=== PATIENT | male | born 1945 | race Caucasian/White ===

== ENCOUNTER → 2018-11-05 | Outpatient (CLI) | payer MEDICARE, BC ==
--- NOTE | 2018-11-05 11:19 | SFUN ---
SLEEP CENTER FOLLOW UP NOTE DATE OF SERVICE: 11/05/2018. This 73-year-old gentleman had been followed in sleep center for treatment of obstructive sleep apnea-hypopnea syndrome. Patient continued to use CPAP equipment every night for the whole night, sleeps well with that. No significant excessive daytime sleepiness. [place] Sleepiness Scale is 7. I checked his CPAP unit. CPAP pressure is 11 cm of water. Usage is 100% of the time more than 4 hours. Average usage is 7.6 hours. Quite significant leak 49 L/minute, but apnea-hypopnea index totally normal 1.81. MEDICATIONS: Lisinopril, Januvia, omeprazole, metformin, potassium supplement, allopurinol, atorvastatin. PHYSICAL EXAMINATION: During physical exam, a gentleman without distress. VITAL SIGNS: BP 124/70, HR 73, RR 16, height 5 feet 11 inches, weight 319.6 pounds, temperature 98.3, oxygen saturation at room air 93%. HEENT: PERRLA, EOMI. Oropharynx low position of soft palate, Mallampati 3-4. NECK: Supple, no JVD. Thyroid is not palpable. LUNGS: Clear to percussion and to auscultation. Good air exchange. No wheezing or rhonchi. HEART: S1, S2 regular. No murmurs, gallops, or rubs. ABDOMEN: Soft and nontender. Bowel sounds are present. No organomegaly appreciated. EXTREMITIES: 1+ bilateral ankle edema. WRAP TURNER: Awake, alert, and oriented X3. Cranial nerves 2 to 7 intact. There is no fasciculation or atrophy. noted. No focal deficits observed. IMPRESSION: 1. Severe obstructive sleep apnea-hypopnea syndrome; apnea-hypopnea index by results of previous sleep study 57.4 with oxygen desaturation to 73.2% on full control with CPAP at 11 cm of water. The patient demonstrated 100% compliance with treatment benefitting from treatment. 2. Still there is a leak while using CPAP equipment, possibly related to opening mouth. Patient has chinstrap but not always using it. 3. Obesity. 4. Hypertension. 5. Diabetes mellitus. 6. Hyperlipidemia. 7. History of kidney stones. 8. Status post melanoma treatment. PLAN: 1. Patient will continue to use CPAP equipment every night for the whole night with chinstrap every night. 2. We will continue to maintain all necessary prescription for mask, tube, filters or any other necessary CPAP supplies. 3. Losing weight. 4. Sleep hygiene with regular time in bed for at least 8 hours. 5. No driving if feeling sleepiness. 6. Follow-up visit in 1 year or earlier if patient has any problems. Thank you very much for allowing me to participate in management of your patient. Sincerely, Norberto Rai MD, PhD, FAASM Diplomat of [place] [employer] [place] [employer] Chief Engineering Division of [facility] [place] MMODL / IJN: [id number] /
== END ==
LOC: SLEEP 10:07
PROVIDERS: ATTEND Internal Medicine
DX: G47.33 Obstructive sleep apnea (adult) (pediatric) (principal); E66.9 Obesity, unspecified; I10 Essential (primary) hypertension; E11.9 Type 2 diabetes mellitus without complications; E78.5 Hyperlipidemia, unspecified; Z99.89 Dependence on other enabling machines and devices; Z79.84 Long term (current) use of oral hypoglycemic drugs; Z79.899 Other long term (current) drug therapy; Z98.890 Other specified postprocedural states; Z87.442 Personal history of urinary calculi; Z85.828 Personal history of other malignant neoplasm of skin

== ENCOUNTER → 2019-10-21 | Outpatient (CLI) | payer MEDICARE ==
--- NOTE | 2019-10-21 11:53 | SFUN ---
SLEEP CENTER FOLLOW UP NOTE DATE OF SERVICE: 10/21/2019 This 74-year-old gentleman has been followed in Sleep Center for treatment of obstructive sleep apnea-hypopnea syndrome. The patient continued to use his CPAP treatment, sometimes maybe not for the whole night because he has to wake up at night several times to take care about his . [place] Sleepiness Scale today is 10, which is borderline. I checked patient's CPAP unit. CPAP pressure is 11 cm of water. The patient used it for 327 nights out of 365 nights for the last year and 233 nights more than 4 hours with average usage 5.6 hours per night. Leak is quite high 47 L/minute. In the same time, apnea-hypopnea index borderline 5.3, which is acceptable. The patient is using AirFit P10 large nasal pillow mask. MEDICATIONS: , finasteride, Januvia, metformin, Crestor, allopurinol, meloxicam, spironolactone, tolterodine, baby aspirin. PHYSICAL EXAMINATION: During physical exam, patient in no distress. VITAL SIGNS: BP 106/57, HR 74, RR 16, height 5 feet 11 inches, weight 312.0 pounds, body mass index 43.5. The patient lost about 7 pounds since last visit. Temperature 97.7, oxygen saturation at room air 95%. HEENT: PERRLA, EOMI. Oropharynx low position of soft palate, Mallampati 3-4. NECK: Supple, no JVD. Thyroid is not palpable. LUNGS: Clear to percussion and to auscultation. Good air exchange. No wheezing or rhonchi. HEART: S1, S2 regular. No murmurs, gallops, or rubs. ABDOMEN: Obese. EXTREMITIES: 1+ bilateral ankle edema. SOLIDWORKS DESIGNER: Awake, alert, and oriented X3. Cranial nerves 2 to 7 intact. There is no fasciculation or atrophy. noted. No focal deficits observed. IMPRESSION: 1. Severe obstructive sleep apnea-hypopnea syndrome; apnea-hypopnea index 57.4. The patient continued to use his CPAP equipment, benefitting from treatment. 2. Obesity. Patient lost about 7 pounds since last visit. 3. Hypertension. 4. Diabetes mellitus. 5. Hyperlipidemia. 6. History of kidney stones. 7. Status post melanoma treatment. PLAN: 1. Patient will continue to use CPAP equipment every night for the whole night. 2. To continued losing weight. 3. Sleep hygiene with regular time in bed for at least 7-1/2 to 8 hours. 4. Prescription for all necessary CPAP supplies including nasal pillow mask AirFit P10 large size and chinstrap. 5. No driving if feeling any sleepiness. Thank you very much for allowing me to participate in management of your patient. Sincerely, Norberto Rai MD, PhD, FAASM Diplomat of [place] [employer] [place] [employer] Residential Interior Designer of [facility] [place] MMODL / IJN: [id number] /
== END | disposition home or self-care (01) ==
LOC: SLEEP 11:01
PROVIDERS: ATTEND Internal Medicine
DX: G47.33 Obstructive sleep apnea (adult) (pediatric) (principal); E66.9 Obesity, unspecified; I10 Essential (primary) hypertension; E11.9 Type 2 diabetes mellitus without complications; E78.5 Hyperlipidemia, unspecified; Z87.442 Personal history of urinary calculi; Z98.890 Other specified postprocedural states; Z99.89 Dependence on other enabling machines and devices; Z68.41 Body mass index [BMI] 40.0-44.9, adult; Z79.84 Long term (current) use of oral hypoglycemic drugs; Z79.1 Long term (current) use of non-steroidal anti-inflammatories (NSAID); Z79.82 Long term (current) use of aspirin

== ENCOUNTER → 2021-04-12 | Outpatient (CLI) | payer MEDICARE ==
--- NOTE | 2021-04-12 22:45 | SFUN ---
SLEEP CENTER FOLLOW UP NOTE DATE OF SERVICE: 04/12/2021 This 75-year-old gentleman has been followed in Sleep Center for treatment of obstructive sleep apnea-hypopnea syndrome. The patient continues to use CPAP equipment every night. He does not have on CPAP, getting his supplies on time. [place] Sleepiness Scale is 4 today, which is normal. During the last visit when apnea-hypopnea index was 6.5, I increased the pressure from 11 cm of water to 12 cm of water because his CPAP unit does not have an option for automatic regulation of pressure. I checked his CPAP unit today. Pressure is 12 cm of water. Usage is 30/30 nights and 16/30 nights for more than 4 hours. Average 4.6 hours per night. Very high leak of 54 L/minute. Apnea-hypopnea index 8.0. MEDICATIONS: 1. Spironolactone 25 mg once a day. 2. Omeprazole 20 mg once a day. 3. Rosuvastatin 20 mg once a day. 4. Meloxicam 15 mg once a day. 5. Metformin 500 mg 2 tablets twice a day. 6. Allopurinol 300 mg once a day. 7. Januvia 100 mg once a day. 8. Finasteride 5 mg once a day. 9. Ezetimibe 10 mg once a day. 10.Voltaren as needed. PHYSICAL EXAMINATION: GENERAL: A pleasant gentleman without distress. VITAL SIGNS: BP 134/72, HR 76, RR 15, height 5 feet 10-1/2 inches, weight 295 pounds, which is one pound less than during the last visit. Body mass index 41.7, temperature 98.2, oxygen saturation at room air 93%. HEENT: PERRLA, EOMI, evaluation of oropharynx showed tongue protrudes midline. Low position of soft palate; Mallampati III to IV. NECK: Supple, no JVD. Thyroid is not palpable. LUNGS: Clear to percussion and to auscultation. Good air exchange. No wheezing or rhonchi. HEART: S1, S2 regular. No murmurs, gallops, or rubs. ABDOMEN: Obese. EXTREMITIES: No clubbing or cyanosis. COLD MOLDING PRESS OPERATOR: Awake, alert, and oriented X3. Cranial nerves 2 to 7 intact. There is no fasciculation or atrophy. noted. No focal deficits observed. IMPRESSION: 1. Severe obstructive sleep apnea-hypopnea syndrome. Original AHI was 57.4. The patient is using equipment every night, sometimes for a short time. Quite significant leak from the mask. Apnea-hypopnea index is slightly increased. 2. Obesity in morbid range. Body mass index 41.7. 3. Hypertension. 4. Diabetes mellitus. 5. Hyperlipidemia. 6. History of kidney stones. 7. Status post treatment for melanoma. PLAN: 1. I increased pressure in the CPAP unit to 13. 2. Prescription for chin strap. 3. Patient will continue to use PAP equipment every night for the whole night. 4. Sleep hygiene with regular time in bed for at least 7-1/2 to 8 hours. 5. Precautions related to driving. No driving if feeling sleepiness. 6. I will maintain all necessary prescription for PAP supplies including mask, tube, filters. 7. Watching weight. 8. Follow-up visit in 6 months or earlier if patient has any problems. Thank you very much for allowing me to participate in the management of your patient. Sincerely, Norberto Rai MD, PhD, FAASM Diplomat of [place] [employer] Sleep Medicine Board of [place] [employer] Fats And Oils Loader of [facility] [place] MMODL / IJN: [id number] /
== END | disposition home or self-care (01) ==
LOC: SLEEP 15:23
PROVIDERS: ATTEND Internal Medicine
DX: G47.33 Obstructive sleep apnea (adult) (pediatric) (principal); E66.01 Morbid (severe) obesity due to excess calories; Z68.41 Body mass index [BMI] 40.0-44.9, adult; I10 Essential (primary) hypertension; E11.9 Type 2 diabetes mellitus without complications; E78.5 Hyperlipidemia, unspecified; Z87.442 Personal history of urinary calculi

== ENCOUNTER → 2021-10-11 | Outpatient (CLI) | payer MEDICARE ==
--- NOTE | 2021-10-11 15:24 | SFUN ---
SLEEP CENTER FOLLOW UP NOTE DATE OF SERVICE: 10/11/2021 This 75-year-old gentleman has been followed in Sleep Center for treatment of obstructive sleep apnea-hypopnea syndrome. The patient is using his CPAP equipment, but not every night. Without the machine, he has snoring. [place] Sleepiness Scale today is 8, which is in acceptable range. I checked his CPAP unit. Pressure is 13 cm of water. Usage is 14/30 nights and only 3/30 nights for more than 4 hours; average usage 2.6 hours per night. Leak is 42 L/minute. Apnea-hypopnea index is 9.7. MEDICATIONS: No changes compared to his previous visit. 1. Spironolactone 25 mg once a day. 2. Omeprazole 20 mg once a day. 3. Rosuvastatin 20 mg once a day. 4. Meloxicam 15 mg once a day. 5. Metformin 500 mg twice a day. 6. Allopurinol 300 mg once a day. 7. Januvia 100 mg once a day. 8. Finasteride 5 mg once a day. 9. Ezetimibe 10 mg once a day. 10.Voltaren are as needed. PHYSICAL EXAMINATION: GENERAL: Pleasant patient in no distress. VITAL SIGNS: BP 153/70, HR 63 with some irregularities, RR 16, weight 303.2. Patient's weight increased by 8 pounds compared with the previous visit. Height 5 feet 10-1/2 inches, temperature 97.3, oxygen saturation at room air 95%. HEENT: PERRLA, EOMI, evaluation of oropharynx showed tongue protrudes midline. Low position of soft palate; Mallampati III to IV. NECK: Supple, no JVD. Thyroid is not palpable. LUNGS: Clear to percussion and to auscultation. Good air exchange. No wheezing or rhonchi. HEART: S1, S2 with some extra beats. ABDOMEN: Obese. EXTREMITIES: No clubbing or cyanosis. SOLDER TECHNICIAN: Awake, alert, and oriented X3. Cranial nerves 2 to 7 intact. There is no fasciculation or atrophy. noted. No focal deficits observed. IMPRESSION: 1. Severe obstructive sleep apnea-hypopnea syndrome; apnea-hypopnea index . Patient is using CPAP equipment with borderline compliance. Apnea-hypopnea index increased to 9.7. His CPAP unit is more than 5 years old. He does not have option for automatic adjustments of pressure. Significant leak from the mask. 2. Obesity. 3. Hypertension. 4. Diabetes mellitus. 5. Hyperlipidemia. 6. History of kidney stones. 7. Status post treatment for melanoma. 8. Patient is planning for knee replacement surgery. PLAN: 1. Prescription for replacement of CPAP unit with an automatic unit, range of the pressure 5 to 18. 2. The patient should use a chinstrap. 3. I again discussed with the patient the necessity of using CPAP equipment every night for the whole night. 4. Please consider Holter monitoring; probably he has episodes of cardiac arrhythmia. 5. Follow-up visit in 30 to 90 days after the patient is started on treatment with his new CPAP unit to evaluate his clinical response on treatment, compliance with treatment, and to check his respiration. 6. Losing weight. 7. No driving if feeling sleepiness. Thank you very much for allowing me to participate in the management of your patient. Sincerely, Norberto Rai MD, PhD, FAASM Diplomat of [place] [employer]ties Sleep Medicine Board of [place] [employer] of Internal Medicine Mobile Web Application Developer of [facility] [place] MMODL / IJN: [id number] /
== END | disposition home or self-care (01) ==
LOC: SLEEP 13:58
PROVIDERS: ATTEND Internal Medicine
DX: G47.33 Obstructive sleep apnea (adult) (pediatric) (principal); E66.9 Obesity, unspecified; I10 Essential (primary) hypertension; E11.9 Type 2 diabetes mellitus without complications; E78.5 Hyperlipidemia, unspecified; Z87.442 Personal history of urinary calculi; Z98.890 Other specified postprocedural states

== ENCOUNTER → 2024-05-27 | Outpatient (CLI) | payer MEDICARE ==
[2024-05-27 14:14] VITALS: BP 123/68; PULSE 64; RESP 18; TEMP 97.4
--- NOTE | 2024-05-27 14:58 | P.PROGSL ---
Subjective DATE: 05/27/2024 FOLLOW UP VISIT. Patient with obstructive sleep apnea hypopnea syndrome return to sleep center for follow-up visit. Information from previous visit have been reviewed. Patient is using PAP equipment every night for the whole night, getting PAP supplies in time. The patient does not have significant problems with the mask, PAP unit and humidification. [place] sleepiness scale is 7, which is normal. I checked information from PAP unit. PAP unit pressure 5-18, average 11.5 cm H2O. Usage is 97% and around 70% for more then 4 hours, average 4.5 hours per night. Leak is increased to 52.2 l/m, patient needs to replace mask. Apnea Hypopnea Index is 6.8, which is minimally increased, improved comparing with previous visit when it was 9.7. During previous visit I adjusted pressure in his CPAP unit. MEDICATIONS have been reviewed, please see below. During physical exam: GENERAL: A pleasant patient without any distress. VITAL SIGNS: Please see below, weight is 269 lbs. HEENT: PERRLA, EOMI.low position of soft palate, Mallapati 3-4. NECK: Supple. No JVD. LUNGS: Clear to percussion and to auscultation. Good air exchange. No wheezing or rhonchi. HEART: S1, S2 regular. ABDOMEN: Soft and nontender. Obese EXTREMITIES: No clubbing or cyanosis. HOSTESS CASHIER: Awake, alert, and oriented x3. No focal deficit. Impressions: 1. Obstructive sleep apnea-hypopnea syndrome. Patient demonstrated great compliance with treatment, benefiting from treatment. 2. Obesity, patient lost 33 pounds since previous visit, present BMI 39.1. 3. Hypertension. 4. Hyperlipidemia. 5. Diabetes mellitus. 6. Status post surgical treatment for melanoma, squamous cell cancer and basal cell carcinoma of the skin. 7. History of kidney stones. 8. Status post knee replacement. 9. 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 Plan: 1. Continue using PAP equipment every night for the whole night. 2. Sleep hygiene with regular time in bed for at least 7.5-8 hours 3. PAP unit should stay lower then position of the head. 4. Advised patient to remove all remaining water from humidifier canister daily and make it dry after each usage. Refill canister with fresh distilled water before each usage. 5. Watching and losing weight. 6. Precautions related to driving. No driving if feel any sleepiness. 7. I will maintain prescription for PAP supplies including mask, tube, filters. 8. Follow up visit in 8 months or earlier if patient has any problems. Thank you very much for allowing me to participate in the management of your patient. Norberto Rai MD, PhD, FAASM. Diplomat of [place] [employer], Sleep Medicine Board by [place] [employer] Medicine Line Patrolman of [facility] [place] cc: Nicola Garcia MD Objective - Vital Signs Vital Signs: Vital Signs Temp 97.4 F L 05/27/24 14:10 Pulse 64 05/27/24 14:10 Resp 18 05/27/24 14:10 BP 123/68 05/27/24 14:10 Pulse Ox 94 L 05/27/24 14:10 FiO2 Intake & Output 05/26/24 05/27/24 05/27/24 18:59 06:59 18:59 Weight 122.243 kg
== END ==
LOC: 3 N SLEEP 13:44
PROVIDERS: ATTEND Internal Medicine
DX: G47.33 Obstructive sleep apnea (adult) (pediatric) (principal); E66.9 Obesity, unspecified; I10 Essential (primary) hypertension; E78.5 Hyperlipidemia, unspecified; E11.9 Type 2 diabetes mellitus without complications; Z98.890 Other specified postprocedural states; Z85.828 Personal history of other malignant neoplasm of skin; Z96.659 Presence of unspecified artificial knee joint; Z87.442 Personal history of urinary calculi; Z99.89 Dependence on other enabling machines and devices; Z68.39 Body mass index [BMI] 39.0-39.9, adult
CPT/HCPCS: 99212

== ENCOUNTER → 2025-02-03 | Outpatient (CLI) | payer MEDICARE ==
[2025-02-03 11:27] VITALS: BP 119/71; PULSE 70; RESP 16; TEMP 98.1
--- NOTE | 2025-02-03 11:55 | P.PROGSL ---
Subjective DATE: 02/03/2025 FOLLOW UP VISIT. Patient with obstructive sleep apnea hypopnea syndrome return to sleep center for follow-up visit. Information from previous visit have been reviewed. Patient is using PAP equipment every night for the whole night, getting PAP supplies in time. The patient does not have significant problems with the mask, PAP unit and humidification. [place] sleepiness scale is 3. I checked information from PAP unit. PAP unit pressure 5-18, average 11.6 cm H2O. Usage is 98% for more then 4 hours, average 5.2 hours per night. Leak is increased to 41 l/m. Apnea Hypopnea Index is 4.8, which is normal. MEDICATIONS: Mounjaro, Myrbetriq, amlodipine, farxiga, finasteride, aspirin 81 mg, ferrous sulfate. During physical exam: GENERAL: A pleasant patient without any distress. VITAL SIGNS: Please see below, weight is 257 lbs. HEENT: PERRLA, EOMI.low position of soft palate, Mallapati 34. NECK: Supple. No JVD. LUNGS: Clear to percussion and to auscultation. Good air exchange. No wheezing or rhonchi. HEART: S1, S2 regular. ABDOMEN: Soft and nontender.[] EXTREMITIES: No clubbing or cyanosis. CONTENT ADMINISTRATOR: Awake, alert, and oriented x3. No focal deficit. Impressions: 1. Obstructive sleep apnea-hypopnea syndrome. Patient demonstrated great compliance with treatment, benefiting from treatment. 2. Obesity, patient lost 12 pounds since previous visit, BMI 36.8. 3. Hypertension. 4. Diabetes mellitus. 5. Hyperlipidemia. 6. Status post surgical treatment for melanoma, squamous cell and basal cell carcinoma of the skin. 7. Status post bilateral knee replacement. 8. 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 Plan: 1. Continue using PAP equipment every night for the whole night. 2. Sleep hygiene with regular time in bed for at least 7.5-8 hours 3. PAP unit should stay lower then position of the head. 4. Advised patient to remove all remaining water from humidifier canister daily and make it dry after each usage. Refill canister with fresh distilled water before each usage. 5. Watching weight. 6. Precautions related to driving. No driving if feel any sleepiness. 7. I will maintain prescription for PAP supplies including mask, tube, filters. 8. Follow up visit in 8 months or earlier if patient has any problems. Thank you very much for allowing me to participate in the management of your patient. Norberto Rai MD, PhD, FAASM. Diplomat of [place] [employer], Sleep Medicine Board by [place] [employer] Secret Service Agent of [facility] [place] Objective - Vital Signs Vital Signs: Vital Signs Temp 98.1 F 02/03/25 11:26 Pulse 70 02/03/25 11:26 Resp 16 02/03/25 11:26 BP 119/71 02/03/25 11:26 Pulse Ox 96 02/03/25 11:26 FiO2 Intake & Output 02/02/25 02/03/25 02/03/25 18:59 06:59 18:59 Weight 116.573 kg
== END ==
LOC: 3 N SLEEP 11:12
PROVIDERS: ATTEND Internal Medicine
DX: G47.33 Obstructive sleep apnea (adult) (pediatric) (principal); E66.9 Obesity, unspecified; I10 Essential (primary) hypertension; E11.9 Type 2 diabetes mellitus without complications; E78.5 Hyperlipidemia, unspecified; Z68.36 Body mass index [BMI] 36.0-36.9, adult; Z98.890 Other specified postprocedural states; Z96.653 Presence of artificial knee joint, bilateral; Z99.89 Dependence on other enabling machines and devices
CPT/HCPCS: 99212